=== PATIENT | male | born 1955 | race American Indian/Alaskan Native ===

== ENCOUNTER 2018-01-09 18:58 | Inpatient (IN) | payer OTHER ==
[2018-01-09 19:42] LABS: Hematocrit 32.6 % (35.5-45.6); Hemoglobin 11.2 gm/dl (11.8-15.2); Mean Corpuscular HGB Conc 34 % (32-34); Mean Corpuscular Hemoglobin 31 pg (28-32); Mean Corpuscular Volume 90 fl (84-94); Platelet Count 423 K/mm3 (140-440); Red Blood Count 3.61 M/mm3 (3.65-5.03); Red Cell Distribution Width 12.8 % (13.2-15.2)
[2018-01-09 19:55] LABS: INR 1.16 (0.87-1.13)
[2018-01-09 19:56] LABS: Partial Thromboplastin Time 29.6 Sec. (24.2-36.6)
[2018-01-09 20:07] LABS: Albumin 4.6 g/dL (3.9-5); Calcium 9.7 mg/dL (8.4-10.2)
[2018-01-09] MEDS ORDERED: D50W (25GM) Syringe IV ONE ×3 (20:15→22:32)
[2018-01-09] MEDS ORDERED: HumuLIN R IV ONE ×2 (20:15→22:32)
[2018-01-09] MEDS ORDERED: NACL 0.9% 1000 ML 1,000 ML IV ONE ×2 (20:16→22:01)
--- NOTE | 2018-01-09 20:22 | Cat Scan Report ---
FINAL REPORT EXAM: CT HEAD/BRAIN WO CON HISTORY: weakness TECHNIQUE: CT head without contrast PRIORS: None. FINDINGS: No acute intra-axial or extra-axial hemorrhage is identified. There is no evidence of midline shift or mass effect. The ventricles and sulci are within normal limits. Pedroza-white matter differentiation is intact. There is encephalomalacia left frontal lobe likely ischemic or posttraumatic in origin. No acute parenchymal abnormalities are seen. Bony calvarium is grossly intact. Visualized portions of the mastoids and paranasal sinuses are unremarkable. IMPRESSION: Chronic ischemic changes left frontal lobe No acute abnormality identified.
--- NOTE | 2018-01-09 20:41 | Emergency Department Report ---
HPI - General Chief Complaint: Weakness Time Seen by Provider: 01/09/18 19:16 - HPI HPI: 62-year-old male presents to the ED with generalized weakness, chills. Patient with history of prostate issues stated that he's been having some urinary retention ever since they took out is Perrin catheter. ED Past Medical Hx - Past Medical History Hx Hypertension: No Hx CVA: No - Social History Smoking Status: Never Smoker ED Review of Systems ROS: Stated complaint: GENERAL WEAKNESS Other details as noted in HPI Comment: All other systems reviewed and negative Cardiovascular: denies: chest pain Gastrointestinal: denies: abdominal pain, nausea, vomiting Genitourinary: urgency Physical Exam - Physical Exam Vital Signs: Vital Signs 01/09/18 01/09/18 01/09/18 19:03 19:07 19:15 Temperature 97.6 F Pulse Rate 74 78 76 Respiratory 12 12 11 L Rate Blood Pressure 129/80 123/78 O2 Sat by Pulse 82 L 98 Oximetry 01/09/18 01/09/18 19:31 19:46 Temperature Pulse Rate 79 Respiratory 12 12 Rate Blood Pressure 117/75 O2 Sat by Pulse 100 Oximetry Physical Exam: Gen. alert and oriented 3 in no distress but frail-appearing gentleman Extremity: Dry scaly extremities Head atraumatic normocephalic Eyes PERR LA EOMI Chest regular rate and rhythm normal S1-S2 lungs clear bilaterally Abdomen soft nondistended Back no point tenderness paravertebral tenderness Neuro no focal deficit. Psych normal mood. ED Course Vital Signs 01/09/18 01/09/18 01/09/18 19:03 19:07 19:15 Temperature 97.6 F Pulse Rate 74 78 76 Respiratory 12 12 11 L Rate Blood Pressure 129/80 123/78 O2 Sat by Pulse 82 L 98 Oximetry 01/09/18 01/09/18 19:31 19:46 Temperature Pulse Rate 79 Respiratory 12 12 Rate Blood Pressure 117/75 O2 Sat by Pulse 100 Oximetry ED Medical Decision Making - Lab Data Result diagrams: 01/09/18 19:35 01/10/18 01:19 Critical care attestation.: If time is entered above; I have spent that time in minutes in the direct care of this critically ill patient, excluding procedure time. ED Disposition Clinical Impression: Acute kidney injury, Hyperkalemia Disposition: OP ADMIT IP TO THIS HOSP Is pt being admited?: Yes Does the pt Need Aspirin: No Condition: Stable
[2018-01-09 20:45] LABS: Chol/HDL Ratio 3.5 %
[2018-01-09] MEDS ORDERED: CALCIUM CHLORIDE 1,000 MG in NACL 0.9% 100 ML IV ONE ×2 (21:00→23:00)
[2018-01-09] MEDS ORDERED: KIONEX PO ONE (21:24)
[2018-01-09] MEDS ORDERED: PROVENTIL IH ONE ×2 (21:24→22:46)
[2018-01-09 21:29] LABS: Anisocytosis 1+; Band Neutrophils # (Manual) 0.1 K/mm3; Basophils % (Manual) 0 % (0.0-1.8); Eosinophils % (Manual) 0 % (0.0-4.3); Platelet Estimate Consistent w Auto; Total Cells Counted 100
[2018-01-09] MEDS ORDERED: SODIUM CHLORIDE FLUSH SYRINGE 10 ML IV PRN (21:41)
[2018-01-09] MEDS ORDERED: ZOFRAN IV PRN (21:41)
[2018-01-09] MEDS ORDERED: TYLENOL PO PRN (21:41)
--- NOTE | 2018-01-09 21:41 | History and Physical Report ---
History of Present Illness Date of examination: 01/09/18 Chief complaint: Lower abdominal pain History of present illness: 62-year-old -[place] male was diagnosed with hypertension, BPH recently at [facility] and was given medications and discharged. Patient is very poor historian. Patient complains he has pain in the lower abdomen that started to 4 days ago. Couldn't characterize the pain but he said 8/10, constant pain. Patient said he had urinary retention for the last 3-4 days. He also complains hematuria and blood clot in the urine for the last 5 days. Went to [facility] diagnosed with hypertension and BPH was given amlodipine and BPH medications. Patient is feeling weak and tired, decreased food and fluid intake , decreased appetite. Denied fever, chills. REVIEW OF SYSTEMS: GENERAL: no weight change, + fatigue, no fever HEAD: no head ache EYES: no blurry vision, no acute visual loss EARS: no hearing loss, no discharge, no earache NOSE: no stuffiness, no sneezing, no discharge MOUTH, THROAT AND NECK: no bleeding gums, no sore throat, no swollen neck CARDIAC: no palpitations, no dyspnea on exertion, no orthopnea, no PND, no edema , no chest pain RESPIRATORY: no shortness of breath, no wheeze, no cough, no sputum, no hemoptysis, no asthma GI: As stated in the HPI. URINARY: Hematuria, and failure to pass urine MUSCULOSKELETAL: no muscle weakness, no pain, no joint stiffness NEUROLOGIC: no loss of sensation/numbness, no tingling, no tremors, no weakness/ paralysis HEMATOLOGIC: no anemia, no easy bruising SKIN: no rashes ENDOCRINE: no heat/cold intolerance, no polyuria, no polydipsia, no thyroid problems PSYCHIATRIC: no anxiety, no depression, no suicidal ideations Past History Past Medical History: hypertension, other (BPH) Past Surgical History: No surgical history Social history: full code. denies: smoking, alcohol abuse, prescription drug abuse, IV drug use Family history: no significant family history Medications and Allergies Allergies Allergy/AdvReac Type Severity Reaction Status Date / Time No Known Allergies Allergy Verified 01/09/18 20:41 Exam - Physical Exam Narrative exam: Not in cardiopulmonary distress. Ashen berkowitz face. The patient appeared emaciated. Vital signs as documented. Head exam is unremarkable. No scleral icterus . Neck is without jugular venous distension, thyromegaly, or carotid bruits. Lungs are clear to auscultation. Cardiac exam reveals regular rate and Rhythm. Abdominal exam reveals normal bowel sounds. Urinary cath in place. Extremities are nonedematous and both femoral and pedal pulses are normal. OPERATIONAL RISK MANAGER: Alert and oriented 3. No focal weakness. - Constitutional Vitals: Temp Pulse Resp BP Pulse Ox 97.6 F 85 22 117/75 100 01/09/18 19:07 01/09/18 20:45 01/09/18 20:45 01/09/18 20:45 01/09/18 20:45 Results - Labs CBC & Chem 7: 01/09/18 19:35 01/09/18 21:31 Labs: Laboratory Last Values WBC 14.6 K/mm3 (4.5-11.0) H 01/09/18 19:35 RBC 3.61 M/mm3 (3.65-5.03) L 01/09/18 19:35 Hgb 11.2 gm/dl (11.8-15.2) L 01/09/18 19:35 Hct 32.6 % (35.5-45.6) L 01/09/18 19:35 MCV 90 fl (84-94) 01/09/18 19:35 MCH 31 pg (28-32) 01/09/18 19:35 MCHC 34 % (32-34) 01/09/18 19:35 RDW 12.8 % (13.2-15.2) L 01/09/18 19:35 Plt Count 423 K/mm3 (140-440) 01/09/18 19:35 Add Manual Diff Complete 01/09/18 19:35 Total Counted 100 01/09/18 19:35 Seg Neuts % (Manual) 91.0 % (40.0-70.0) H 01/09/18 19:35 Band Neutrophils % 1.0 % 01/09/18 19:35 Lymphocytes % (Manual) 4.0 % (13.4-35.0) L 01/09/18 19:35 Reactive Lymphs % (Man) 0 % 01/09/18 19:35 Monocytes % (Manual) 4.0 % (0.0-7.3) 01/09/18 19:35 Eosinophils % (Manual) 0 % (0.0-4.3) 01/09/18 19:35 Basophils % (Manual) 0 % (0.0-1.8) 01/09/18 19:35 Metamyelocytes % 0 % 01/09/18 19:35 Myelocytes % 0 % 01/09/18 19:35 Promyelocytes % 0 % 01/09/18 19:35 Blast Cells % 0 % 01/09/18 19:35 Nucleated RBC % Not Reportable 01/09/18 19:35 Seg Neutrophils # Man 13.3 K/mm3 (1.8-7.7) H 01/09/18 19:35 Band Neutrophils # 0.1 K/mm3 01/09/18 19:35 Lymphocytes # (Manual) 0.6 K/mm3 (1.2-5.4) L 01/09/18 19:35 Abs React Lymphs (Man) 0.0 K/mm3 01/09/18 19:35 Monocytes # (Manual) 0.6 K/mm3 (0.0-0.8) 01/09/18 19:35 Eosinophils # (Manual) 0.0 K/mm3 (0.0-0.4) 01/09/18 19:35 Basophils # (Manual) 0.0 K/mm3 (0.0-0.1) 01/09/18 19:35 Metamyelocytes # 0.0 K/mm3 01/09/18 19:35 Myelocytes # 0.0 K/mm3 01/09/18 19:35 Promyelocytes # 0.0 K/mm3 01/09/18 19:35 Blast Cells # 0.0 K/mm3 01/09/18 19:35 WBC Morphology Not Reportable 01/09/18 19:35 Hypersegmented Neuts Not Reportable 01/09/18 19:35 Hyposegmented Neuts Not Reportable 01/09/18 19:35 Hypogranular Neuts Not Reportable 01/09/18 19:35 Smudge Cells Not Reportable 01/09/18 19:35 Toxic Granulation Not Reportable 01/09/18 19:35 Toxic Vacuolation Not Reportable 01/09/18 19:35 Dohle Bodies Not Reportable 01/09/18 19:35 Pelger-Huet Anomaly Not Reportable 01/09/18 19:35 Conchita Rods Not Reportable 01/09/18 19:35 Platelet Estimate Consistent w auto 01/09/18 19:35 Clumped Platelets Not Reportable 01/09/18 19:35 Plt Clumps, EDTA Not Reportable 01/09/18 19:35 Large Platelets Not Reportable 01/09/18 19:35 Giant Platelets Not Reportable 01/09/18 19:35 Platelet Satelliting Not Reportable 01/09/18 19:35 Plt Morphology Comment Not Reportable 01/09/18 19:35 RBC Morphology Not Reportable 01/09/18 19:35 Dimorphic RBCs Not Reportable 01/09/18 19:35 Polychromasia Not Reportable 01/09/18 19:35 Hypochromasia Not Reportable 01/09/18 19:35 Poikilocytosis Not Reportable 01/09/18 19:35 Anisocytosis 1+ 01/09/18 19:35 Microcytosis Not Reportable 01/09/18 19:35 Macrocytosis Not Reportable 01/09/18 19:35 Spherocytes Not Reportable 01/09/18 19:35 Pappenheimer Bodies Not Reportable 01/09/18 19:35 Sickle Cells Not Reportable 01/09/18 19:35 Target Cells Not Reportable 01/09/18 19:35 Tear Drop Cells Not Reportable 01/09/18 19:35 Ovalocytes Not Reportable 01/09/18 19:35 Helmet Cells Not Reportable 01/09/18 19:35 [place] Bodies Not Reportable 01/09/18 19:35 [place] Rings Not Reportable 01/09/18 19:35 [place] Cells Not Reportable 01/09/18 19:35 Bite Cells Not Reportable 01/09/18 19:35 Crenated Cell Not Reportable 01/09/18 19:35 Elliptocytes Not Reportable 01/09/18 19:35 Acanthocytes (Spur) Not Reportable 01/09/18 19:35 Rouleaux Not Reportable 01/09/18 19:35 Hemoglobin C Crystals Not Reportable 01/09/18 19:35 Schistocytes Not Reportable 01/09/18 19:35 Malaria parasites Not Reportable 01/09/18 19:35 Alvaro Bodies Not Reportable 01/09/18 19:35 Hem Pathologist Commnt No 01/09/18 19:35 PT 15.4 Sec. (12.2-14.9) H 01/09/18 19:35 INR 1.16 (0.87-1.13) H 01/09/18 19:35 APTT 29.6 Sec. (24.2-36.6) 01/09/18 19:35 Sodium 121 mmol/L (137-145) L 01/09/18 19:35 Potassium 7.5 mmol/L (3.6-5.0) H* 01/09/18 19:35 Chloride 73.9 mmol/L (98-107) L 01/09/18 19:35 Carbon Dioxide 11 mmol/L (22-30) L 01/09/18 19:35 Anion Gap 44 mmol/L 01/09/18 19:35 BUN 276 mg/dL (9-20) H 01/09/18 19:35 Creatinine 12.7 mg/dL (0.8-1.5) H 01/09/18 19:35 Estimated GFR 4 ml/min 01/09/18 19:35 BUN/Creatinine Ratio 22 % 01/09/18 19:35 Glucose 129 mg/dL (75-100) H 01/09/18 19:35 Calcium 9.7 mg/dL (8.4-10.2) 01/09/18 19:35 Total Bilirubin 0.60 mg/dL (0.1-1.2) 01/09/18 19:35 AST 27 units/L (5-40) 01/09/18 19:35 ALT 26 units/L (7-56) 01/09/18 19:35 Alkaline Phosphatase 96 units/L (35-129) 01/09/18 19:35 Troponin T 0.032 ng/mL (0.00-0.029) H 01/09/18 19:35 NT-Pro-B Natriuret Pep 483.2 pg/mL (0-900) 01/09/18 19:35 Total Protein 8.2 g/dL (6.3-8.2) 01/09/18 19:35 Albumin 4.6 g/dL (3.9-5) 01/09/18 19:35 Albumin/Globulin Ratio 1.3 % 01/09/18 19:35 Triglycerides 130 mg/dL (2-149) 03/08/18 19:35 Cholesterol 179 mg/dL (50-199) 01/09/18 19:35 LDL Cholesterol Direct 102 mg/dL (50-130) 01/09/18 19:35 HDL Cholesterol 51 mg/dL (40-59) 01/09/18 19:35 Cholesterol/HDL Ratio 3.50 % 01/09/18 19:35 - Imaging and Cardiology CT Scan - head: report reviewed (chronic ischemic changes) Imaging and Cardiology: Pelvic ultrasound reading pending Assessment and Plan Assessment and plan: Acute renal failure Acute urinary retention secondary to BPH Hyperkalemia Severe dehydration Hypernatremia Deconditioning UTI - Patient was given hyperkalemia cocktail, patient has peaked T wave and calcium gluconate was given, repeat potassium is going up to 7.6 from 7.[address] Alexander and he said the sample is hemolyzed, and recommended to give him Kayexalate and will evaluate him in the morning. Patient needed frequent BMP and follow-up of repeat EKG. Patient may need dialysis - Patient was catheterized and about a liter of urine was collected, no hematuria seen in the urine - Renal ultrasound was done - Patient may need urology consult in the morning - Patient has UTI, urine culture was collected and given ceftriaxone - Patient was given 2 L of normal saline bolus and now on continuous normal saline DVT prophylaxis - Heparin Disposition - Admit to telemetry floor Advance Directives: Yes VTE prophylaxis?: Chemical Plan of care discussed with patient/family: Yes
[2018-01-09] MEDS ORDERED: NACL 0.9% 1000 ML 1,000 ML IV SCH (22:00)
[2018-01-09] MEDS ORDERED: PEPCID PO SCH (22:00)
[2018-01-09 22:06] LABS: Bacteria,Urine 1+ /HPF (Negative); Bilirubin,Urine NEG (Negative); Blood,Urine LG (Negative); Color,Urine Yellow (Yellow); Urobilinogen,Urine < 2.0 mg/dL (<2.0)
[2018-01-09 22:09] LABS: WBC,Urine > 182.0 /HPF (0.0-6.0)
[2018-01-09] MEDS ORDERED: CALCIUM CHLORIDE IV ONE (22:32)
[2018-01-09] MEDS: SODIUM CHLORIDE FLUSH SYRINGE 10 ML IV SCH (22:48)
[2018-01-09] MEDS ORDERED: NACL 0.9% 1000 ML 1,000 ML ONE (22:50)
[2018-01-09] MEDS ORDERED: HEPARIN ONE (23:32)
[2018-01-09] MEDS ORDERED: PEPCID IV ONE (23:32)
[2018-01-09] MEDS ORDERED: PEPCID ONE (23:39)
[2018-01-09] MEDS: HEPARIN SUB-Q SCH (23:53)
--- NOTE | 2018-01-09 23:53 | Ultrasound Report ---
FINAL REPORT EXAM: US RENAL BILAT HISTORY: acute on chronic renal failure TECHNIQUE: Ultrasound kidneys PRIORS: None. FINDINGS: Kidneys demonstrate increased renal echogenicity bilaterally Right kidney is 10.4 x 4.7 x 7.9 centimeters Left kidney is 12.3 x 5.6 x 6.6 centimeters There is moderate to severe bilateral hydronephrosis the right proximal ureters are dilated There is a Perrin present. The bulb is at the inferior aspect of the bladder and may be and inflated within the prostatic urethra. There is some fluid along with debris present within the urinary bladder. Bladder dunne are markedly thickened IMPRESSION: Perrin catheter which may be inflated within prostate. Consider advancement Some debris within the urinary bladder could reflect blood products, infection or other etiologies marked bladder wall thickening Bilateral hydronephrosis Increased echogenicity within renal parenchyma bilaterally likely reflecting chronic medical renal disease
[2018-01-10] MEDS ORDERED: cefTRIAXone 2 GM in NACL 0.9% 20 ML IV ONE
[2018-01-10] MEDS ORDERED: MORPHINE IV PRN ×2 (00:27→00:46)
[2018-01-10] MEDS: PEPCID PO SCH ×3 (01:33→22:29)
[2018-01-10 01:46] LABS: Calcium 9.3 mg/dL (8.4-10.2)
[2018-01-10] MEDS ORDERED: PROAIR IH PRN (04:52)
[2018-01-10] MEDS ORDERED: PROVENTIL IH PRN (04:57)
[2018-01-10] MEDS: HEPARIN SUB-Q SCH ×3 (05:59→22:29)
[2018-01-10 06:01] LABS: Hematocrit 31.5 % (35.5-45.6); Hemoglobin 10.7 gm/dl (11.8-15.2); Mean Corpuscular HGB Conc 34 % (32-34); Mean Corpuscular Hemoglobin 31 pg (28-32); Mean Corpuscular Volume 92 fl (84-94); Platelet Count 385 K/mm3 (140-440); Red Blood Count 3.44 M/mm3 (3.65-5.03); Red Cell Distribution Width 12.8 % (13.2-15.2)
[2018-01-10] MEDS: SODIUM BICARBONATE 100 MEQ in STERILE WATER 1,000 ML IV SCH ×2 (06:11→22:30)
[2018-01-10 07:44] LABS: Basophils % (Manual) 0 % (0.0-1.8); Eosinophils % (Manual) 0 % (0.0-4.3); RBC Morphology Normal; Total Cells Counted 100
--- NOTE | 2018-01-10 08:27 | Consultation ---
History of Present Illness - Reason for Consult Consult date: 01/10/18 acute renal failure, hyponatremia, hyperkalemia - History of Present Illness The patient is a 62-year-old AAM with history significant for Hypertension and BPH presented to the ER with abdominal pain and feeling unwell. Patient is poor historian. He has not been feeling well for the past 3 weeks with decreased appetite, poor PO intake, feeling weak and tired. He denies any pain at this time. Patient reports urinary retention for the past 3-4 days and associated with hematuria and blood clot in the urine. Initial labs were significant for potassium of 7.5 and creatinine 12.7 and BUN 276. After the ellison was placed he drained atleast 750 ml immediately per ER physician. Past History Past Medical History: hypertension, other (BPH) Past Surgical History: No surgical history Social history: full code. denies: smoking, alcohol abuse, prescription drug abuse, IV drug use Family history: no significant family history Medications and Allergies Allergies Allergy/AdvReac Type Severity Reaction Status Date / Time No Known Allergies Allergy Verified 01/09/18 20:41 Active Meds: Active Medications Acetaminophen (Tylenol) 650 mg PO Q4H PRN PRN Reason: Pain MILD(1-3)/Fever >100.5/GODINEZ Albuterol (Proventil) 2.5 mg IH Q4HRT PRN PRN Reason: Shortness Of Breath Famotidine (Pepcid) 10 mg PO BID [facility] Last Admin: 01/10/18 01:33 Dose: 10 mg Heparin Sodium (Porcine) (Heparin) 5,000 unit SUB-Q Q8HR [facility] Last Admin: 01/10/18 05:59 Dose: 5,000 unit Sodium Chloride (Nacl 0.9% 1000 Ml) 1,000 mls @ 150 mls/hr IV DIRECT [facility] Last Admin: 01/10/18 04:42 Dose: 150 mls/hr Ceftriaxone Sodium 1 gm/ (Sodium Chloride) 20 mls @ 2 mls/min IV Q24HR@2200 [facility] Sodium Bicarbonate 100 meq/ (Sterile Water) 1,100 mls @ 100 mls/hr IV DIRECT [facility] Last Admin: 01/10/18 06:11 Dose: 100 mls/hr Morphine Sulfate (Morphine) 2 mg IV Q4H PRN PRN Reason: Pain, Moderate (4-6) Ondansetron HCl (Zofran) 4 mg IV Q8H PRN PRN Reason: Nausea And Vomiting Sodium Chloride (Sodium Chloride Flush Syringe 10 Ml) 10 ml IV BID [facility] Last Admin: 01/09/18 22:48 Dose: 10 ml Sodium Chloride (Sodium Chloride Flush Syringe 10 Ml) 10 ml IV PRN PRN PRN Reason: LINE FLUSH Review of Systems Constitutional: weight loss, anorexia, fatigue, weakness, malaise, poor appetite , no weight gain, no fever, no chills, no chronic pain Ears, nose, mouth and throat: no epistaxis Cardiovascular: high blood pressure, no chest pain, no orthopnea, no palpitations, no edema, no syncope, no lightheadedness, no shortness of breath, no leg edema Respiratory: no cough, no hemoptysis, no shortness of breath, no dyspnea on exertion Gastrointestinal: abdominal pain, no nausea, no vomiting, no diarrhea, no hematemesis, no melena, no jaundice Genitourinary Male: no dysuria, no hematuria Rectal: no bleeding Musculoskeletal: no redness of joints Integumentary: no rash, no redness, no wounds, no jaundice Neurological: weakness, no paralysis, no aphasia, no change in speech Exam - Vital Signs Vital signs: Vital Signs Pulse Resp Pulse Ox 74 12 82 L 01/09/18 19:03 01/09/18 19:03 01/09/18 19:03 - General Appearance General appearance: well-developed, appears stated age, other (no distress) EENT: ATNC, PERRL, mucous membranes dry, hearing intact, vision intact Neck: Present: neck supple, trachea midline Respiratory: Clear to Ascultation Heart: regular, S1S2, no murmurs Gastrointestinal: Present: normoactive bowel sounds. Absent: tenderness, distended Integumentary: no rash, warm and dry Neurologic: no focal deficit, no asterixis, disoriented Musculoskeletal: Present: other (no edema) Psychiatric: mood/affect appropriate, cooperative Results - Lab Results 01/10/18 04:59 01/10/18 04:59 Most recent lab results Calcium 9.0 mg/dL (8.4-10.2) 01/10/18 04:59 - Image Kidney/bladder ultrasound: report reviewed Assessment and Plan 1. Acute kidney injury: SANDOVAL in the setting of obstructive Uropathy and volume depletion. S/p ellison catheter in the ER. Continue IV fluids. Renal parameters are improving. Renal prognosis is guarded. 2. Hyperkalemia: Improved with meds. 3. Metabolic acidosis: Continue bicarbonate drip. May need hemodialysis if not improving. Monitor. 4. Hyponatremia: Likely secondary to volume depletion. Monitor Sodium levels. IV D5W was started. 5. Volume depletion: Continue IV fluids. 6. BPH with bladder outlet obstruction: S/p Ellison catheter.
[2018-01-10] MEDS: SODIUM CHLORIDE FLUSH SYRINGE 10 ML IV SCH ×2 (09:00→22:32)
[2018-01-10] MEDS ORDERED: D5W 1,000 ML IV SCH (09:00)
[2018-01-10] MEDS ORDERED: ROCEPHIN/NS 1 GM/50 ML 1 GM/50 ML BAG IV SCH (10:00)
[2018-01-10] MEDS ORDERED: ATIVAN IV ONE (12:00)
--- NOTE | 2018-01-10 12:41 | Consultation ---
History of Present Illness - Reason for Consult Consult date: 01/10/18 - History of Present Illness 62-year-old male presents to the ED with generalized weakness, chills. Patient with history of prostate issues stated that he's been having some urinary retention ever since they took out is Ellison catheter. creatinine 12 now 8 pelvic us(01-10-18)---decompressed bladder, ellison balloon in bladder foely draining pink tinged urine A/P bph continue ellison home with ellison when stable start flomax 1qd office appt 1-2 weeks after discharge Past History Past Medical History: hypertension, other (BPH) Past Surgical History: No surgical history Social history: full code. denies: smoking, alcohol abuse, prescription drug abuse, IV drug use Family history: no significant family history Medications and Allergies Allergies Allergy/AdvReac Type Severity Reaction Status Date / Time No Known Allergies Allergy Verified 01/09/18 20:41 Active Meds: Active Medications Acetaminophen (Tylenol) 650 mg PO Q4H PRN PRN Reason: Pain MILD(1-3)/Fever >100.5/GODINEZ Albuterol (Proventil) 2.5 mg IH Q4HRT PRN PRN Reason: Shortness Of Breath Famotidine (Pepcid) 10 mg PO BID [facility] Last Admin: 01/10/18 10:08 Dose: 10 mg Heparin Sodium (Porcine) (Heparin) 5,000 unit SUB-Q Q8HR [facility] Last Admin: 01/10/18 05:59 Dose: 5,000 unit Sodium Chloride (Nacl 0.9% 1000 Ml) 1,000 mls @ 150 mls/hr IV DIRECT [facility] Last Admin: 01/10/18 04:42 Dose: 150 mls/hr Ceftriaxone Sodium 1 gm/ (Sodium Chloride) 20 mls @ 2 mls/min IV Q24HR@2200 [facility] Sodium Bicarbonate 100 meq/ (Sterile Water) 1,100 mls @ 100 mls/hr IV DIRECT [facility] Last Admin: 01/10/18 06:11 Dose: 100 mls/hr Dextrose (D5w) 1,000 mls @ 75 mls/hr IV DIRECT [facility] Stop: 01/10/18 22:19 Last Admin: 01/10/18 09:00 Dose: 75 mls/hr Morphine Sulfate (Morphine) 2 mg IV Q4H PRN PRN Reason: Pain, Moderate (4-6) Ondansetron HCl (Zofran) 4 mg IV Q8H PRN PRN Reason: Nausea And Vomiting Sodium Chloride (Sodium Chloride Flush Syringe 10 Ml) 10 ml IV BID [facility] Last Admin: 01/10/18 09:00 Dose: 10 ml Sodium Chloride (Sodium Chloride Flush Syringe 10 Ml) 10 ml IV PRN PRN PRN Reason: LINE FLUSH Exam - Constitutional Vitals: Temp Pulse Resp BP Pulse Ox 98.6 F 93 H 19 120/87 100 01/10/18 12:08 01/10/18 12:08 01/10/18 12:08 01/10/18 12:08 01/10/18 12:08 Results - Labs CBC & Chem 7: 01/10/18 04:59 01/10/18 14:03 Labs: Abnormal lab results 01/09/18 01/09/18 01/09/18 Range/Units 19:35 19:35 19:35 WBC 14.6 H (4.5-11.0) K/mm3 RBC 3.61 L (3.65-5.03) M/mm3 Hgb 11.2 L (11.8-15.2) gm/dl Hct 32.6 L (35.5-45.6) % RDW 12.8 L (13.2-15.2) % Seg Neuts % (Manual) 91.0 H (40.0-70.0) % Lymphocytes % (Manual) 4.0 L (13.4-35.0) % Monocytes % (Manual) (0.0-7.3) % Seg Neutrophils # Man 13.3 H (1.8-7.7) K/mm3 Lymphocytes # (Manual) 0.6 L (1.2-5.4) K/mm3 Monocytes # (Manual) (0.0-0.8) K/mm3 PT (12.2-14.9) Sec. INR (0.87-1.13) Sodium 121 L (137-145) mmol/L Potassium 7.5 H* (3.6-5.0) mmol/L Chloride 73.9 L (98-107) mmol/L Carbon Dioxide 11 L (22-30) mmol/L BUN 276 H (9-20) mg/dL Creatinine 12.7 H (0.8-1.5) mg/dL Glucose 129 H (75-100) mg/dL Total Creatine Kinase (55-170) units/L Troponin T 0.032 H (0.00-0.029) ng/mL Urine WBC (Auto) (0.0-6.0) /HPF 01/09/18 01/09/18 01/09/18 Range/Units 19:35 21:31 21:48 WBC (4.5-11.0) K/mm3 RBC (3.65-5.03) M/mm3 Hgb (11.8-15.2) gm/dl Hct (35.5-45.6) % RDW (13.2-15.2) % Seg Neuts % (Manual) (40.0-70.0) % Lymphocytes % (Manual) (13.4-35.0) % Monocytes % (Manual) (0.0-7.3) % Seg Neutrophils # Man (1.8-7.7) K/mm3 Lymphocytes # (Manual) (1.2-5.4) K/mm3 Monocytes # (Manual) (0.0-0.8) K/mm3 PT 15.4 H (12.2-14.9) Sec. INR 1.16 H (0.87-1.13) Sodium (137-145) mmol/L Potassium 7.6 H* (3.6-5.0) mmol/L Chloride (98-107) mmol/L Carbon Dioxide (22-30) mmol/L BUN (9-20) mg/dL Creatinine (0.8-1.5) mg/dL Glucose (75-100) mg/dL Total Creatine Kinase (55-170) units/L Troponin T (0.00-0.029) ng/mL Urine WBC (Auto) > 182.0 H (0.0-6.0) /HPF 01/10/18 01/10/18 01/10/18 Range/Units 01:19 04:59 04:59 WBC 15.2 H (4.5-11.0) K/mm3 RBC 3.44 L (3.65-5.03) M/mm3 Hgb 10.7 L (11.8-15.2) gm/dl Hct 31.5 L (35.5-45.6) % RDW 12.8 L (13.2-15.2) % Seg Neuts % (Manual) 88.0 H (40.0-70.0) % Lymphocytes % (Manual) 4.0 L (13.4-35.0) % Monocytes % (Manual) 8.0 H (0.0-7.3) % Seg Neutrophils # Man 13.4 H (1.8-7.7) K/mm3 Lymphocytes # (Manual) 0.6 L (1.2-5.4) K/mm3 Monocytes # (Manual) 1.2 H (0.0-0.8) K/mm3 PT (12.2-14.9) Sec. INR (0.87-1.13) Sodium 125 L 129 L (137-145) mmol/L Potassium 6.8 H* (3.6-5.0) mmol/L Chloride 84.3 L 83.1 L (98-107) mmol/L Carbon Dioxide 9 L* 8 L* (22-30) mmol/L BUN 257 H 254 H (9-20) mg/dL Creatinine 11.8 H 10.6 H (0.8-1.5) mg/dL Glucose 107 H 117 H (75-100) mg/dL Total Creatine Kinase 950 H (55-170) units/L Troponin T (0.00-0.029) ng/mL Urine WBC (Auto) (0.0-6.0) /HPF
[2018-01-10 14:34] LABS: Calcium 8.7 mg/dL (8.4-10.2)
[2018-01-10] MEDS ORDERED: K-DUR PO ONE (16:00)
--- NOTE | 2018-01-10 16:42 | Ultrasound Report ---
FINAL REPORT PROCEDURE: US PELVIC LIMITED TECHNIQUE: Real-time transabdominal sonography in multiple planes of pelvis for a focused or limited evaluation was performed with image documentation. CPT 35114 HISTORY: confirm ellison placement, abdominal pain COMPARISON: No prior studies are available for comparison. FINDINGS: Ellison catheter is visualized in the urinary bladder. A large amount of debris is visualized collected dependently in the urinary bladder. The dunne of the urinary bladder are markedly thickened. Consider cystitis, bladder outlet obstruction or infiltrating mass.. IMPRESSION: Ellison catheter visualized in the urinary bladder. Large amount of debris visualized dependently in the bladder. Thickened urinary bladder wall as described.
--- NOTE | 2018-01-10 17:35 | Progress Note ---
Assessment and Plan Assessment and plan: 62-year-old -[place] male was diagnosed with hypertension, BPH recently at [facility] and was given medications and discharged. Patient is very poor historian. Patient complains he has pain in the lower abdomen that started to 4 days ago. Couldn't characterize the pain but he said 8/10, constant pain. Patient said he had urinary retention for the last 3-4 days. He also complains hematuria and blood clot in the urine for the last 5 days. Acute renal failure Likely secondary to volume depletion and bladder outlet obstruction S/p ellison catheter in the ER. Continue IV fluids, nephrology following Acute urinary retention secondary to BPH Ellison placed incorrectly, urology consulted Hyperkalemia Improved with hyperkalemia cocktail, continue to monitor Severe dehydration Continue IV fluids Hyponatremia Likely secondary to volume depletion. Monitor Sodium levels. IV D5W was initiated Metabolic acidosis Continue bicarbonate drip. May need hemodialysis if not improving per Dr Alexander Nephrology following Deconditioning UTI Follow urine culture, continue ceftriaxone BPH with bladder outlet obstruction S/p Ellison catheter insertion, U/S shows may be in prostate Urology consulted DVT prophylaxis Heparin History Interval history: Patient seen and examined, no new complaints at this time. He denies chest pain , shortness of breath, nausea vomiting. Labs and nursing notes reviewed. Hospitalist Physical - Constitutional Vitals: Temp Pulse Resp BP Pulse Ox 98.6 F 102 H 19 119/78 94 01/10/18 15:38 01/10/18 15:38 01/10/18 15:38 01/10/18 15:38 01/10/18 15:38 General appearance: Present: no acute distress, cachectic - EENT Eyes: Present: PERRL, EOM intact ENT: hearing intact, clear oral mucosa - Neck Neck: Present: supple, normal ROM - Respiratory Respiratory effort: normal Respiratory: bilateral: CTA - Cardiovascular Rhythm: regular Heart Sounds: Present: S1 & S2 - Extremities Extremities: no ischemia, No edema - Abdominal General gastrointestinal: soft, non-tender, non-distended, normal bowel sounds - Integumentary Integumentary: Present: clear, warm, dry - Psychiatric Psychiatric: appropriate mood/affect, intact judgment & insight, cooperative - Neurologic Neurologic: CNII-XII intact, moves all extremities - Allied Health Allied health notes reviewed: nursing Results - Labs CBC & Chem 7: 01/10/18 04:59 01/10/18 14:03 Labs: Laboratory Last Values WBC 15.2 K/mm3 (4.5-11.0) H 01/10/18 04:59 RBC 3.44 M/mm3 (3.65-5.03) L 01/10/18 04:59 Hgb 10.7 gm/dl (11.8-15.2) L 01/10/18 04:59 Hct 31.5 % (35.5-45.6) L 01/10/18 04:59 MCV 92 fl (84-94) 01/10/18 04:59 MCH 31 pg (28-32) 01/10/18 04:59 MCHC 34 % (32-34) 01/10/18 04:59 RDW 12.8 % (13.2-15.2) L 01/10/18 04:59 Plt Count 385 K/mm3 (140-440) 01/10/18 04:59 Add Manual Diff Complete 01/10/18 04:59 Total Counted 100 01/10/18 04:59 Seg Neuts % (Manual) 88.0 % (40.0-70.0) H 01/10/18 04:59 Band Neutrophils % 0 % 01/10/18 04:59 Lymphocytes % (Manual) 4.0 % (13.4-35.0) L 01/10/18 04:59 Reactive Lymphs % (Man) 0 % 01/10/18 04:59 Monocytes % (Manual) 8.0 % (0.0-7.3) H 01/10/18 04:59 Eosinophils % (Manual) 0 % (0.0-4.3) 01/10/18 04:59 Basophils % (Manual) 0 % (0.0-1.8) 01/10/18 04:59 Metamyelocytes % 0 % 01/10/18 04:59 Myelocytes % 0 % 01/10/18 04:59 Promyelocytes % 0 % 01/10/18 04:59 Blast Cells % 0 % 01/10/18 04:59 Nucleated RBC % Not Reportable 01/10/18 04:59 Seg Neutrophils # Man 13.4 K/mm3 (1.8-7.7) H 01/10/18 04:59 Band Neutrophils # 0.0 K/mm3 01/10/18 04:59 Lymphocytes # (Manual) 0.6 K/mm3 (1.2-5.4) L 01/10/18 04:59 Abs React Lymphs (Man) 0.0 K/mm3 01/10/18 04:59 Monocytes # (Manual) 1.2 K/mm3 (0.0-0.8) H 01/10/18 04:59 Eosinophils # (Manual) 0.0 K/mm3 (0.0-0.4) 01/10/18 04:59 Basophils # (Manual) 0.0 K/mm3 (0.0-0.1) 01/10/18 04:59 Metamyelocytes # 0.0 K/mm3 01/10/18 04:59 Myelocytes # 0.0 K/mm3 01/10/18 04:59 Promyelocytes # 0.0 K/mm3 01/10/18 04:59 Blast Cells # 0.0 K/mm3 01/10/18 04:59 WBC Morphology Not Reportable 01/10/18 04:59 Hypersegmented Neuts Not Reportable 01/10/18 04:59 Hyposegmented Neuts Not Reportable 01/10/18 04:59 Hypogranular Neuts Not Reportable 01/10/18 04:59 Smudge Cells Not Reportable 01/10/18 04:59 Toxic Granulation Not Reportable 01/10/18 04:59 Toxic Vacuolation Not Reportable 01/10/18 04:59 Dohle Bodies Not Reportable 01/10/18 04:59 Pelger-Huet Anomaly Not Reportable 01/10/18 04:59 Conchita Rods Not Reportable 01/10/18 04:59 Platelet Estimate Not Reportable 01/10/18 04:59 Clumped Platelets Not Reportable 01/10/18 04:59 Plt Clumps, EDTA Not Reportable 01/10/18 04:59 Large Platelets Not Reportable 01/10/18 04:59 Giant Platelets Not Reportable 01/10/18 04:59 Platelet Satelliting Not Reportable 01/10/18 04:59 Plt Morphology Comment Not Reportable 01/10/18 04:59 RBC Morphology Normal 01/10/18 04:59 Dimorphic RBCs Not Reportable 01/10/18 04:59 Polychromasia Not Reportable 01/10/18 04:59 Hypochromasia Not Reportable 01/10/18 04:59 Poikilocytosis Not Reportable 01/10/18 04:59 Anisocytosis Not Reportable 01/10/18 04:59 Microcytosis Not Reportable 01/10/18 04:59 Macrocytosis Not Reportable 01/10/18 04:59 Spherocytes Not Reportable 01/10/18 04:59 Pappenheimer Bodies Not Reportable 01/10/18 04:59 Sickle Cells Not Reportable 01/10/18 04:59 Target Cells Not Reportable 01/10/18 04:59 Tear Drop Cells Not Reportable 01/10/18 04:59 Ovalocytes Not Reportable 01/10/18 04:59 Helmet Cells Not Reportable 01/10/18 04:59 [place] Bodies Not Reportable 01/10/18 04:59 [place] Rings Not Reportable 01/10/18 04:59 Lance Cells Not Reportable 01/10/18 04:59 Bite Cells Not Reportable 01/10/18 04:59 Crenated Cell Not Reportable 01/10/18 04:59 Elliptocytes Not Reportable 01/10/18 04:59 Acanthocytes (Spur) Not Reportable 01/10/18 04:59 Rouleaux Not Reportable 01/10/18 04:59 Hemoglobin C Crystals Not Reportable 01/10/18 04:59 Schistocytes Not Reportable 01/10/18 04:59 Malaria parasites Not Reportable 01/10/18 04:59 Alvaro Bodies Not Reportable 01/10/18 04:59 Hem Pathologist Commnt No 01/10/18 04:59 PT 15.4 Sec. (12.2-14.9) H 01/09/18 19:35 INR 1.16 (0.87-1.13) H 01/09/18 19:35 APTT 29.6 Sec. (24.2-36.6) 01/09/18 19:35 Sodium 132 mmol/L (137-145) L 01/10/18 14:03 Potassium 3.1 mmol/L (3.6-5.0) L D 01/10/18 14:03 Chloride 83.4 mmol/L (98-107) L 01/10/18 14:03 Carbon Dioxide 16 mmol/L (22-30) L D 01/10/18 14:03 Anion Gap 36 mmol/L 01/10/18 14:03 BUN 218 mg/dL (9-20) H 01/10/18 14:03 Creatinine 8.0 mg/dL (0.8-1.5) H 01/10/18 14:03 Estimated GFR 8 ml/min 01/10/18 14:03 BUN/Creatinine Ratio 27 % 01/10/18 14:03 Glucose 155 mg/dL (75-100) H 01/10/18 14:03 Calcium 8.7 mg/dL (8.4-10.2) 01/10/18 14:03 Total Bilirubin 0.60 mg/dL (0.1-1.2) 01/09/18 19:35 AST 27 units/L (5-40) 01/09/18 19:35 ALT 26 units/L (7-56) 01/09/18 19:35 Alkaline Phosphatase 96 units/L (35-129) 01/09/18 19:35 Total Creatine Kinase 950 units/L (55-170) H 01/10/18 04:59 Troponin T 0.032 ng/mL (0.00-0.029) H 01/09/18 19:35 NT-Pro-B Natriuret Pep 483.2 pg/mL (0-900) 01/09/18 19:35 Total Protein 8.2 g/dL (6.3-8.2) 01/09/18 19:35 Albumin 4.6 g/dL (3.9-5) 01/09/18 19:35 Albumin/Globulin Ratio 1.3 % 01/09/18 19:35 Triglycerides 130 mg/dL (2-149) 01/09/18 19:35 Cholesterol 179 mg/dL (50-199) 01/09/18 19:35 LDL Cholesterol Direct 102 mg/dL (50-130) 01/09/18 19:35 HDL Cholesterol 51 mg/dL (40-59) 01/09/18 19:35 Cholesterol/HDL Ratio 3.50 % 01/09/18 19:35 Urine Color Yellow (Yellow) 01/09/18 21:48 Urine Turbidity Cloudy (Clear) 01/09/18 21:48 Urine pH 5.0 (5.0-7.0) 01/09/18 21:48 Ur Specific [place] 1.012 (1.003-1.030) 01/09/18 21:48 Urine Protein 100 mg/dl mg/dL (Negative) 01/09/18 21:48 Urine Glucose (UA) 50 mg/dL (Negative) 01/09/18 21:48 Urine Ketones Neg mg/dL (Negative) 01/09/18 21:48 Urine Blood Lg (Negative) 01/09/18 21:48 Urine Nitrite Neg (Negative) 01/09/18 21:48 Urine Bilirubin Neg (Negative) 01/09/18 21:48 Urine Urobilinogen < 2.0 mg/dL (<2.0) 01/09/18 21:48 Ur Leukocyte Esterase Lg (Negative) 01/09/18 21:48 Urine WBC (Auto) > 182.0 /HPF (0.0-6.0) H 01/09/18 21:48 Urine RBC (Auto) 136.0 /HPF (0.0-6.0) 01/09/18 21:48 Urine Bacteria (Auto) 1+ /HPF (Negative) 01/09/18 21:48 - Imaging and Cardiology Imaging and Cardiology: Renal ultrasound shows Ellison catheter which may be inflated within prostate. Consider advancement Some debris within the urinary bladder could reflect blood products, infection or other etiologies marked bladder wall thickening Bilateral hydronephrosis Increased echogenicity within renal parenchyma bilaterally likely reflecting chronic medical renal disease
[2018-01-10] MEDS ORDERED: ROCEPHIN/NS 2 GM/100 ML 2 GM/100 ML BAG IV ONE (22:18)
[2018-01-10] MEDS: cefTRIAXone 1 GM in NACL 0.9% 20 ML IV SCH (22:30)
[2018-01-11] MEDS: HEPARIN SUB-Q SCH ×3 (05:41→21:56)
[2018-01-11 08:03] LABS: Calcium 8.3 mg/dL (8.4-10.2)
--- NOTE | 2018-01-11 08:50 | Progress Note ---
Assessment and Plan Assessment and plan: 62-year-old -[place] male was diagnosed with hypertension, BPH recently at [facility], who presented with abdominal pain and urinary retention. He was admitted with acute kidney failure, urinary retention and hematuria Acute renal failure/Acute tubular stasis Likely secondary to volume depletion and bladder outlet obstruction S/p ellison catheter in the ER. Continue IV fluids, nephrology following Acute urinary retention secondary to BPH Ellison placed incorrectly, urology consulted Hyperkalemia- now resolved Hematuria Likely due to pressure from obstruction, improving Hypokalemia replete as needed Severe dehydration Continue IV fluids Hyponatremia Likely secondary to volume depletion. Monitor Sodium levels. IV D5W was initiated Metabolic acidosis Continue bicarbonate drip. May need hemodialysis if not improving per Dr Alexander Nephrology following Deconditioning UTI Follow urine culture, continue ceftriaxone BPH with bladder outlet obstruction S/p Ellison catheter insertion Continue finasteride and Flomax. Patient will be discharged with Ellison to leg bag and will fup with urology as outpatient Urology consult appreciated DVT prophylaxis Heparin History Interval history: Review of systems Constitutional: No fevers, no malaise, no joint pains CVS: No chest pain, no orthopnea, no dyspnea on exertion, no pedal edema GI: No abdominal pain, no diarrhea, no vomiting, no constipation Respiratory: No shortness of breath, no wheezing, no coughing Hospitalist Physical - Physical exam Narrative exam: General.: Appears well, no distress, nontoxic HEENT: Moist mucous membranes, extraocular muscles intact, no lymphadenopathy Neck: supple Cardiac: S1-S2 heard Lungs: clear to auscultation bilaterally Abdomen: soft , nontender, nondistended, bowel sounds positive Extremities: no edema clubbing or cyanosis Skin: no rash or lesions Neurologic: no gross focal deficits Psych: appropriate behavior, appropriate mood, corporative, judgment intact - Constitutional Vitals: Temp Pulse Resp BP Pulse Ox 98.1 F 90 20 120/81 99 01/11/18 05:11 01/11/18 05:11 01/11/18 05:11 01/11/18 05:11 01/11/18 05:11 General appearance: Present: no acute distress, cachectic Results - Labs CBC & Chem 7: 01/10/18 04:59 01/11/18 06:27 Labs: Laboratory Last Values WBC 15.2 K/mm3 (4.5-11.0) H 01/10/18 04:59 RBC 3.44 M/mm3 (3.65-5.03) L 01/10/18 04:59 Hgb 10.7 gm/dl (11.8-15.2) L 01/10/18 04:59 Hct 31.5 % (35.5-45.6) L 01/10/18 04:59 MCV 92 fl (84-94) 01/10/18 04:59 MCH 31 pg (28-32) 01/10/18 04:59 MCHC 34 % (32-34) 01/10/18 04:59 RDW 12.8 % (13.2-15.2) L 01/10/18 04:59 Plt Count 385 K/mm3 (140-440) 01/10/18 04:59 Add Manual Diff Complete 01/10/18 04:59 Total Counted 100 01/10/18 04:59 Seg Neuts % (Manual) 88.0 % (40.0-70.0) H 01/10/18 04:59 Band Neutrophils % 0 % 01/10/18 04:59 Lymphocytes % (Manual) 4.0 % (13.4-35.0) L 01/10/18 04:59 Reactive Lymphs % (Man) 0 % 01/10/18 04:59 Monocytes % (Manual) 8.0 % (0.0-7.3) H 01/10/18 04:59 Eosinophils % (Manual) 0 % (0.0-4.3) 01/10/18 04:59 Basophils % (Manual) 0 % (0.0-1.8) 01/10/18 04:59 Metamyelocytes % 0 % 01/10/18 04:59 Myelocytes % 0 % 01/10/18 04:59 Promyelocytes % 0 % 01/10/18 04:59 Blast Cells % 0 % 01/10/18 04:59 Nucleated RBC % Not Reportable 01/10/18 04:59 Seg Neutrophils # Man 13.4 K/mm3 (1.8-7.7) H 01/10/18 04:59 Band Neutrophils # 0.0 K/mm3 01/10/18 04:59 Lymphocytes # (Manual) 0.6 K/mm3 (1.2-5.4) L 01/10/18 04:59 Abs React Lymphs (Man) 0.0 K/mm3 01/10/18 04:59 Monocytes # (Manual) 1.2 K/mm3 (0.0-0.8) H 01/10/18 04:59 Eosinophils # (Manual) 0.0 K/mm3 (0.0-0.4) 01/10/18 04:59 Basophils # (Manual) 0.0 K/mm3 (0.0-0.1) 01/10/18 04:59 Metamyelocytes # 0.0 K/mm3 01/10/18 04:59 Myelocytes # 0.0 K/mm3 01/10/18 04:59 Promyelocytes # 0.0 K/mm3 01/10/18 04:59 Blast Cells # 0.0 K/mm3 01/10/18 04:59 WBC Morphology Not Reportable 01/10/18 04:59 Hypersegmented Neuts Not Reportable 01/10/18 04:59 Hyposegmented Neuts Not Reportable 01/10/18 04:59 Hypogranular Neuts Not Reportable 01/10/18 04:59 Smudge Cells Not Reportable 01/10/18 04:59 Toxic Granulation Not Reportable 01/10/18 04:59 Toxic Vacuolation Not Reportable 01/10/18 04:59 Dohle Bodies Not Reportable 01/10/18 04:59 Pelger-Huet Anomaly Not Reportable 01/10/18 04:59 Cnochita Rods Not Reportable 01/10/18 04:59 Platelet Estimate Not Reportable 01/10/18 04:59 Clumped Platelets Not Reportable 01/10/18 04:59 Plt Clumps, EDTA Not Reportable 01/10/18 04:59 Large Platelets Not Reportable 01/10/18 04:59 Giant Platelets Not Reportable 01/10/18 04:59 Platelet Satelliting Not Reportable 01/10/18 04:59 Plt Morphology Comment Not Reportable 01/10/18 04:59 RBC Morphology Normal 01/10/18 04:59 Dimorphic RBCs Not Reportable 01/10/18 04:59 Polychromasia Not Reportable 01/10/18 04:59 Hypochromasia Not Reportable 01/10/18 04:59 Poikilocytosis Not Reportable 01/10/18 04:59 Anisocytosis Not Reportable 01/10/18 04:59 Microcytosis Not Reportable 01/10/18 04:59 Macrocytosis Not Reportable 01/10/18 04:59 Spherocytes Not Reportable 01/10/18 04:59 Pappenheimer Bodies Not Reportable 01/10/18 04:59 Sickle Cells Not Reportable 01/10/18 04:59 Target Cells Not Reportable 01/10/18 04:59 Tear Drop Cells Not Reportable 01/10/18 04:59 Ovalocytes Not Reportable 01/10/18 04:59 Helmet Cells Not Reportable 01/10/18 04:59 [place] Bodies Not Reportable 01/10/18 04:59 [place] Rings Not Reportable 01/10/18 04:59 Lance Cells Not Reportable 01/10/18 04:59 Bite Cells Not Reportable 01/10/18 04:59 Crenated Cell Not Reportable 01/10/18 04:59 Elliptocytes Not Reportable 01/10/18 04:59 Acanthocytes (Spur) Not Reportable 01/10/18 04:59 Rouleaux Not Reportable 01/10/18 04:59 Hemoglobin C Crystals Not Reportable 01/10/18 04:59 Schistocytes Not Reportable 01/10/18 04:59 Malaria parasites Not Reportable 01/10/18 04:59 Alvaro Bodies Not Reportable 01/10/18 04:59 Hem Pathologist Commnt No 01/10/18 04:59 PT 15.4 Sec. (12.2-14.9) H 01/09/18 19:35 INR 1.16 (0.87-1.13) H 01/09/18 19:35 APTT 29.6 Sec. (24.2-36.6) 01/09/18 19:35 Sodium 135 mmol/L (137-145) L 01/11/18 06:27 Potassium 2.9 mmol/L (3.6-5.0) L* 01/11/18 06:27 Chloride 85.2 mmol/L (98-107) L 01/11/18 06:27 Carbon Dioxide 18 mmol/L (22-30) L 01/11/18 06:27 Anion Gap 35 mmol/L 01/11/18 06:27 BUN 171 mg/dL (9-20) H 01/11/18 06:27 Creatinine 5.3 mg/dL (0.8-1.5) H 01/11/18 06:27 Estimated GFR 13 ml/min 01/11/18 06:27 BUN/Creatinine Ratio 32 % 01/11/18 06:27 Glucose 209 mg/dL (75-100) H 01/11/18 06:27 Calcium 8.3 mg/dL (8.4-10.2) L 01/11/18 06:27 Phosphorus 7.50 mg/dL (2.5-4.5) H 01/11/18 06:27 Total Bilirubin 0.60 mg/dL (0.1-1.2) 01/09/18 19:35 AST 27 units/L (5-40) 01/09/18 19:35 ALT 26 units/L (7-56) 01/09/18 19:35 Alkaline Phosphatase 96 units/L (35-129) 01/09/18 19:35 Total Creatine Kinase 606 units/L (55-170) H 01/11/18 06:27 Troponin T 0.032 ng/mL (0.00-0.029) H 01/09/18 19:35 NT-Pro-B Natriuret Pep 483.2 pg/mL (0-900) 01/09/18 19:35 Total Protein 8.2 g/dL (6.3-8.2) 01/09/18 19:35 Albumin 4.6 g/dL (3.9-5) 01/09/18 19:35 Albumin/Globulin Ratio 1.3 % 01/09/18 19:35 Triglycerides 130 mg/dL (2-149) 01/09/18 19:35 Cholesterol 179 mg/dL (50-199) 01/09/18 19:35 LDL Cholesterol Direct 102 mg/dL (50-130) 01/09/18 19:35 HDL Cholesterol 51 mg/dL (40-59) 01/09/18 19:35 Cholesterol/HDL Ratio 3.50 % 01/09/18 19:35 Urine Color Yellow (Yellow) 01/09/18 21:48 Urine Turbidity Cloudy (Clear) 01/09/18 21:48 Urine pH 5.0 (5.0-7.0) 01/09/18 21:48 Ur Specific [place] 1.012 (1.003-1.030) 01/09/18 21:48 Urine Protein 100 mg/dl mg/dL (Negative) 01/09/18 21:48 Urine Glucose (UA) 50 mg/dL (Negative) 01/09/18 21:48 Urine Ketones Neg mg/dL (Negative) 01/09/18 21:48 Urine Blood Lg (Negative) 01/09/18 21:48 Urine Nitrite Neg (Negative) 01/09/18 21:48 Urine Bilirubin Neg (Negative) 01/09/18 21:48 Urine Urobilinogen < 2.0 mg/dL (<2.0) 01/09/18 21:48 Ur Leukocyte Esterase Lg (Negative) 01/09/18 21:48 Urine WBC (Auto) > 182.0 /HPF (0.0-6.0) H 01/09/18 21:48 Urine RBC (Auto) 136.0 /HPF (0.0-6.0) 01/09/18 21:48 Urine Bacteria (Auto) 1+ /HPF (Negative) 01/09/18 21:48 Urine Creatinine 58.0 mg/dL (0.1-20.0) H 01/10/18 Unknown Urine Sodium 24 mmol/L 01/10/18 Unknown
[2018-01-11] MEDS: SODIUM CHLORIDE FLUSH SYRINGE 10 ML IV SCH ×2 (10:04→21:59)
[2018-01-11] MEDS: PROSCAR PO SCH (10:05)
[2018-01-11] MEDS: FLOMAX PO SCH (10:05)
[2018-01-11] MEDS: PEPCID PO SCH ×2 (10:06→21:56)
[2018-01-11] MEDS ORDERED: KCL 50 MEQ in NACL 0.45% 500 ML IV SCH (11:00)
--- NOTE | 2018-01-11 13:00 | Progress Note ---
Assessment and Plan SANDOVAL - IVF & f/u BUN/Cr Bilateral [place] / BPH - Seen by , continue ellison & plan for outpt f/u on d/c Lytes - Replenish K, f/u Mg & f/u Phos. Continue Bicarb drip & f/u HypoNa & Acidosis Disposition - Suggest to hold discharge until BUN/Cr improve further, will f/u with you Subjective Date of service: 01/11/18 Objective - Vital Signs Vital signs: Vital Signs - 12hr 01/11/18 01/11/18 01/11/18 01:00 01:30 01:39 Temperature 98.2 F 98.2 F Pulse Rate 97 H 93 H Respiratory 17 Rate Blood Pressure 112/65 Blood Pressure 112/65 [Right] O2 Sat by Pulse 96 Oximetry 01/11/18 01/11/18 01/11/18 05:11 07:43 09:00 Temperature 98.1 F Pulse Rate 90 108 H 96 H Respiratory 20 Rate Blood Pressure 120/81 101/62 Blood Pressure [Right] O2 Sat by Pulse 99 97 Oximetry - General Appearance General appearance: other (Awake & alert) Neck: no JVD Respiratory: Present: Other (Good air entry) Cardiology: regular, S1S2 Gastrointestinal: other (Soft) Neurologic: no focal deficit - Lab 01/10/18 04:59 01/11/18 06:27 Most recent lab results Calcium 8.3 mg/dL (8.4-10.2) L 01/11/18 06:27 Phosphorus 7.50 mg/dL (2.5-4.5) H 01/11/18 06:27 Urine Creatinine 58.0 mg/dL (0.1-20.0) H 01/10/18 Unknown Urine Sodium 24 mmol/L 01/10/18 Unknown
[2018-01-11] MEDS: cefTRIAXone 1 GM in NACL 0.9% 20 ML IV SCH (21:56)
[2018-01-11] MEDS: SODIUM BICARBONATE 100 MEQ in STERILE WATER 1,000 ML IV SCH (21:56)
[2018-01-12] MEDS: HEPARIN SUB-Q SCH ×3 (06:37→22:51)
[2018-01-12 08:23] LABS: Calcium 8.8 mg/dL (8.4-10.2)
[2018-01-12] MEDS ORDERED: K-DUR PO SCH (10:00)
[2018-01-12] MEDS ORDERED: NACL 0.9% 1000 ML 1,000 ML with KCL 80 MEQ IV ONE (10:36)
[2018-01-12] MEDS: PEPCID PO SCH ×2 (10:37→22:51)
[2018-01-12] MEDS: FLOMAX PO SCH (10:37)
[2018-01-12] MEDS: PROSCAR PO SCH (10:37)
[2018-01-12] MEDS: SODIUM CHLORIDE FLUSH SYRINGE 10 ML IV SCH ×2 (10:44→22:58)
--- NOTE | 2018-01-12 12:31 | Progress Note ---
Assessment and Plan SANDOVAL - IVF & f/u resolving BUN/Cr Bilateral [place] / BPH - Seen by , continue ellison & plan for outpt f/u on d/c Lytes - Replenish K, change bicarb drip to NS Subjective Date of service: 01/12/18 Objective - Vital Signs Vital signs: Vital Signs - 12hr 01/12/18 01/12/18 01/12/18 00:13 03:16 04:22 Temperature 98.2 F 98.5 F Pulse Rate 100 H 96 H 97 H Respiratory 20 20 Rate Blood Pressure 106/70 104/72 O2 Sat by Pulse 97 96 Oximetry 01/12/18 08:44 Temperature 98.7 F Pulse Rate 109 H Respiratory 16 Rate Blood Pressure 105/70 O2 Sat by Pulse 97 Oximetry - General Appearance General appearance: other (Asleep & arousable) Neck: no JVD Respiratory: Present: Clear to Ascultation Cardiology: regular, S1S2 Gastrointestinal: normal - Lab 01/10/18 04:59 01/12/18 06:41 Most recent lab results Calcium 8.8 mg/dL (8.4-10.2) 01/12/18 06:41 Phosphorus 3.60 mg/dL (2.5-4.5) D 01/12/18 06:41 Magnesium 2.30 mg/dL (1.7-2.3) 01/12/18 06:41 Urine Creatinine 58.0 mg/dL (0.1-20.0) H 01/10/18 Unknown Urine Sodium 24 mmol/L 01/10/18 Unknown
[2018-01-12] MEDS ORDERED: NACL 0.9% 1000 ML 1,000 ML IV SCH (13:00)
[2018-01-12] MEDS: KCL 40 MEQ in NACL 0.9% 500 ML 500 ML IV SCH ×2 (14:45→22:52)
--- NOTE | 2018-01-12 15:51 | Progress Note ---
Assessment and Plan Assessment and plan: 62-year-old -Spanish male was diagnosed with hypertension, BPH recently at [facility], who presented with abdominal pain and urinary retention. He was admitted with acute kidney failure, urinary retention and hematuria Acute renal failure/Acute tubular stasis Likely secondary to volume depletion and bladder outlet obstruction S/p ellison catheter in the ER. Continue IV fluids, nephrology following Acute urinary retention secondary to BPH Ellison placed incorrectly, urology consulted Hyperkalemia- now resolved Hematuria Likely due to pressure from obstruction, improving Hypokalemia replete as needed Severe dehydration Continue IV fluids Hyponatremia Likely secondary to volume depletion. Monitor Sodium levels. IV D5W was initiated Metabolic acidosis Continue bicarbonate drip. May need hemodialysis if not improving per Dr Alexander Nephrology following Deconditioning UTI Follow urine culture, continue ceftriaxone BPH with bladder outlet obstruction S/p Ellison catheter insertion Continue finasteride and Flomax. Patient will be discharged with Ellison to leg bag and will fup with urology as outpatient Urology consult appreciated DVT prophylaxis Heparin History Interval history: Review of systems Constitutional: No fevers, no malaise, no joint pains CVS: No chest pain, no orthopnea, no dyspnea on exertion, no pedal edema GI: No abdominal pain, no diarrhea, no vomiting, no constipation Respiratory: No shortness of breath, no wheezing, no coughing Hospitalist Physical - Physical exam Narrative exam: General.: Appears well, no distress, nontoxic HEENT: Moist mucous membranes, extraocular muscles intact, no lymphadenopathy Neck: supple Cardiac: S1-S2 heard Lungs: clear to auscultation bilaterally Abdomen: soft , nontender, nondistended, bowel sounds positive Extremities: no edema clubbing or cyanosis Skin: no rash or lesions Neurologic: no gross focal deficits Psych: appropriate behavior, appropriate mood, corporative, judgment intact - Constitutional Vitals: Temp Pulse Resp BP Pulse Ox 98.7 F 109 H 16 105/70 97 01/12/18 08:44 01/12/18 08:44 01/12/18 08:44 01/12/18 08:44 01/12/18 08:44 General appearance: Present: no acute distress, cachectic Results - Labs CBC & Chem 7: 01/10/18 04:59 01/12/18 06:41 Labs: Laboratory Last Values WBC 15.2 K/mm3 (4.5-11.0) H 01/10/18 04:59 RBC 3.44 M/mm3 (3.65-5.03) L 01/10/18 04:59 Hgb 10.7 gm/dl (11.8-15.2) L 01/10/18 04:59 Hct 31.5 % (35.5-45.6) L 01/10/18 04:59 MCV 92 fl (84-94) 01/10/18 04:59 MCH 31 pg (28-32) 01/10/18 04:59 MCHC 34 % (32-34) 01/10/18 04:59 RDW 12.8 % (13.2-15.2) L 01/10/18 04:59 Plt Count 385 K/mm3 (140-440) 01/10/18 04:59 Add Manual Diff Complete 01/10/18 04:59 Total Counted 100 01/10/18 04:59 Seg Neuts % (Manual) 88.0 % (40.0-70.0) H 01/10/18 04:59 Band Neutrophils % 0 % 01/10/18 04:59 Lymphocytes % (Manual) 4.0 % (13.4-35.0) L 01/10/18 04:59 Reactive Lymphs % (Man) 0 % 01/10/18 04:59 Monocytes % (Manual) 8.0 % (0.0-7.3) H 01/10/18 04:59 Eosinophils % (Manual) 0 % (0.0-4.3) 01/10/18 04:59 Basophils % (Manual) 0 % (0.0-1.8) 01/10/18 04:59 Metamyelocytes % 0 % 01/10/18 04:59 Myelocytes % 0 % 01/10/18 04:59 Promyelocytes % 0 % 01/10/18 04:59 Blast Cells % 0 % 01/10/18 04:59 Nucleated RBC % Not Reportable 01/10/18 04:59 Seg Neutrophils # Man 13.4 K/mm3 (1.8-7.7) H 01/10/18 04:59 Band Neutrophils # 0.0 K/mm3 01/10/18 04:59 Lymphocytes # (Manual) 0.6 K/mm3 (1.2-5.4) L 01/10/18 04:59 Abs React Lymphs (Man) 0.0 K/mm3 01/10/18 04:59 Monocytes # (Manual) 1.2 K/mm3 (0.0-0.8) H 01/10/18 04:59 Eosinophils # (Manual) 0.0 K/mm3 (0.0-0.4) 01/10/18 04:59 Basophils # (Manual) 0.0 K/mm3 (0.0-0.1) 01/10/18 04:59 Metamyelocytes # 0.0 K/mm3 01/10/18 04:59 Myelocytes # 0.0 K/mm3 01/10/18 04:59 Promyelocytes # 0.0 K/mm3 01/10/18 04:59 Blast Cells # 0.0 K/mm3 01/10/18 04:59 WBC Morphology Not Reportable 01/10/18 04:59 Hypersegmented Neuts Not Reportable 01/10/18 04:59 Hyposegmented Neuts Not Reportable 01/10/18 04:59 Hypogranular Neuts Not Reportable 01/10/18 04:59 Smudge Cells Not Reportable 01/10/18 04:59 Toxic Granulation Not Reportable 01/10/18 04:59 Toxic Vacuolation Not Reportable 01/10/18 04:59 Dohle Bodies Not Reportable 01/10/18 04:59 Pelger-Huet Anomaly Not Reportable 01/10/18 04:59 Conchita Rods Not Reportable 01/10/18 04:59 Platelet Estimate Not Reportable 01/10/18 04:59 Clumped Platelets Not Reportable 01/10/18 04:59 Plt Clumps, EDTA Not Reportable 01/10/18 04:59 Large Platelets Not Reportable 01/10/18 04:59 Giant Platelets Not Reportable 01/10/18 04:59 Platelet Satelliting Not Reportable 01/10/18 04:59 Plt Morphology Comment Not Reportable 01/10/18 04:59 RBC Morphology Normal 01/10/18 04:59 Dimorphic RBCs Not Reportable 01/10/18 04:59 Polychromasia Not Reportable 01/10/18 04:59 Hypochromasia Not Reportable 01/10/18 04:59 Poikilocytosis Not Reportable 01/10/18 04:59 Anisocytosis Not Reportable 01/10/18 04:59 Microcytosis Not Reportable 01/10/18 04:59 Macrocytosis Not Reportable 01/10/18 04:59 Spherocytes Not Reportable 01/10/18 04:59 Pappenheimer Bodies Not Reportable 01/10/18 04:59 Sickle Cells Not Reportable 01/10/18 04:59 Target Cells Not Reportable 01/10/18 04:59 Tear Drop Cells Not Reportable 01/10/18 04:59 Ovalocytes Not Reportable 01/10/18 04:59 Helmet Cells Not Reportable 01/10/18 04:59 Watson-George Bodies Not Reportable 01/10/18 04:59 [place] Rings Not Reportable 01/10/18 04:59 Adamant Cells Not Reportable 01/10/18 04:59 Bite Cells Not Reportable 01/10/18 04:59 Crenated Cell Not Reportable 01/10/18 04:59 Elliptocytes Not Reportable 01/10/18 04:59 Acanthocytes (Spur) Not Reportable 01/10/18 04:59 Rouleaux Not Reportable 01/10/18 04:59 Hemoglobin C Crystals Not Reportable 01/10/18 04:59 Schistocytes Not Reportable 01/10/18 04:59 Malaria parasites Not Reportable 01/10/18 04:59 Alvaro Bodies Not Reportable 01/10/18 04:59 Hem Pathologist Commnt No 01/10/18 04:59 PT 15.4 Sec. (12.2-14.9) H 01/09/18 19:35 INR 1.16 (0.87-1.13) H 01/09/18 19:35 APTT 29.6 Sec. (24.2-36.6) 01/09/18 19:35 Sodium 139 mmol/L (137-145) 01/12/18 06:41 Potassium 2.8 mmol/L (3.6-5.0) L* 01/12/18 06:41 Chloride 91.4 mmol/L (98-107) L 01/12/18 06:41 Carbon Dioxide 28 mmol/L (22-30) D 01/12/18 06:41 Anion Gap 22 mmol/L 01/12/18 06:41 BUN 108 mg/dL (9-20) H 01/12/18 06:41 Creatinine 3.0 mg/dL (0.8-1.5) H 01/12/18 06:41 Estimated GFR 26 ml/min 01/12/18 06:41 BUN/Creatinine Ratio 36 % 01/12/18 06:41 Glucose 121 mg/dL (75-100) H 01/12/18 06:41 POC Glucose 146 (70-105) H 01/12/18 06:53 Calcium 8.8 mg/dL (8.4-10.2) 01/12/18 06:41 Phosphorus 3.60 mg/dL (2.5-4.5) D 01/12/18 06:41 Magnesium 2.30 mg/dL (1.7-2.3) 01/12/18 06:41 Total Bilirubin 0.60 mg/dL (0.1-1.2) 01/09/18 19:35 AST 27 units/L (5-40) 01/09/18 19:35 ALT 26 units/L (7-56) 01/09/18 19:35 Alkaline Phosphatase 96 units/L (35-129) 01/09/18 19:35 Total Creatine Kinase 606 units/L (55-170) H 01/11/18 06:27 Troponin T 0.032 ng/mL (0.00-0.029) H 01/09/18 19:35 NT-Pro-B Natriuret Pep 483.2 pg/mL (0-900) 01/09/18 19:35 Total Protein 8.2 g/dL (6.3-8.2) 01/09/18 19:35 Albumin 4.6 g/dL (3.9-5) 01/09/18 19:35 Albumin/Globulin Ratio 1.3 % 01/09/18 19:35 Triglycerides 130 mg/dL (2-149) 01/09/18 19:35 Cholesterol 179 mg/dL (50-199) 01/09/18 19:35 LDL Cholesterol Direct 102 mg/dL (50-130) 01/09/18 19:35 HDL Cholesterol 51 mg/dL (40-59) 01/09/18 19:35 Cholesterol/HDL Ratio 3.50 % 01/09/18 19:35 Urine Color Yellow (Yellow) 01/09/18 21:48 Urine Turbidity Cloudy (Clear) 01/09/18 21:48 Urine pH 5.0 (5.0-7.0) 01/09/18 21:48 Ur Specific [place] 1.012 (1.003-1.030) 01/09/18 21:48 Urine Protein 100 mg/dl mg/dL (Negative) 01/09/18 21:48 Urine Glucose (UA) 50 mg/dL (Negative) 01/09/18 21:48 Urine Ketones Neg mg/dL (Negative) 01/09/18 21:48 Urine Blood Lg (Negative) 01/09/18 21:48 Urine Nitrite Neg (Negative) 01/09/18 21:48 Urine Bilirubin Neg (Negative) 01/09/18 21:48 Urine Urobilinogen < 2.0 mg/dL (<2.0) 01/09/18 21:48 Ur Leukocyte Esterase Lg (Negative) 01/09/18 21:48 Urine WBC (Auto) > 182.0 /HPF (0.0-6.0) H 01/09/18 21:48 Urine RBC (Auto) 136.0 /HPF (0.0-6.0) 01/09/18 21:48 Urine Bacteria (Auto) 1+ /HPF (Negative) 01/09/18 21:48 Urine Creatinine 58.0 mg/dL (0.1-20.0) H 01/10/18 Unknown Urine Sodium 24 mmol/L 01/10/18 Unknown
[2018-01-12] MEDS: cefTRIAXone 1 GM in NACL 0.9% 20 ML IV SCH (22:51)
[2018-01-12] MEDS: K-DUR PO SCH (22:51)
[2018-01-13] MEDS: HEPARIN SUB-Q SCH (06:02)
[2018-01-13 06:55] LABS: Calcium 8.6 mg/dL (8.4-10.2)
--- NOTE | 2018-01-13 09:14 | Progress Note ---
Assessment and Plan 1. Acute kidney injury: SANDOVAL in the setting of obstructive Uropathy and volume depletion. S/p ellison catheter. Continue IV fluids. Renal function continue to improve. 2. Hyperkalemia: Improved. 3. Metabolic acidosis: Improved. 4. Hyponatremia: Improved. Likely secondary to volume depletion. 5. Volume depletion: Continue IV fluids. 6. BPH with bladder outlet obstruction: S/p Ellison catheter. Subjective Date of service: 01/13/18 Interval history: Patient is doing much better. Objective - Vital Signs Vital signs: Vital Signs - 12hr 01/12/18 01/13/18 01/13/18 23:55 04:14 05:36 Temperature 98.7 F 98.2 F Pulse Rate 94 H 107 H 97 H Respiratory 18 18 Rate Blood Pressure 109/77 120/86 O2 Sat by Pulse 98 100 Oximetry 01/13/18 08:03 Temperature 98.5 F Pulse Rate 98 H Respiratory 18 Rate Blood Pressure 122/83 O2 Sat by Pulse 99 Oximetry - General Appearance General appearance: well-developed, appears stated age, other (no distress) EENT: ATNC, PERRL, hearing intact, vision intact Neck: supple Respiratory: Present: Clear to Ascultation Cardiology: regular, S1S2, no murmurs Gastrointestinal: normoactive bowel sounds, no tenderness, no distended Integumentary: no rash, warm and dry Neurologic: no focal deficit, no asterixis, alert and oriented x3 Musculoskeletal: other (no edema) Psychiatric: mood/affect appropriate, cooperative - Lab 01/10/18 04:59 01/13/18 05:52 Most recent lab results Calcium 8.6 mg/dL (8.4-10.2) 01/13/18 05:52 Phosphorus 3.60 mg/dL (2.5-4.5) D 01/12/18 06:41 Magnesium 2.30 mg/dL (1.7-2.3) 01/12/18 06:41 Urine Creatinine 58.0 mg/dL (0.1-20.0) H 01/10/18 Unknown Urine Sodium 24 mmol/L 01/10/18 Unknown
[2018-01-13] MEDS: FLOMAX PO SCH (09:45)
[2018-01-13] MEDS: SODIUM CHLORIDE FLUSH SYRINGE 10 ML IV SCH (09:46)
[2018-01-13] MEDS: PEPCID PO SCH (09:46)
[2018-01-13] MEDS: PROSCAR PO SCH (09:46)
[2018-01-13] MEDS: K-DUR PO SCH (09:46)
--- NOTE | 2018-01-13 13:11 | Discharge Summary ---
Providers - Providers Date of Admission: 01/09/18 21:41 Attending physician: JOHNNA TORRES MD 01/09/18 21:25 Consult to Physician [CONS] Stat Consulting Provider: BRIDGETT ROWLEY Reason For Exam: high k Place consult to:: [facility] Notified:: y 01/10/18 10:03 Consult to Physician [CONS] Routine Consulting Provider: ARVIND AU Reason For Exam: ellison placemen/ BPH Place consult to:: Dr Au Notified:: yes Comment:: called by AMINA MOLINA Primary care physician: VIKAS RAMOS Hospitalization Condition: Stable Disposition: DC-01 TO HOME OR SELFCARE Exam - Constitutional Vitals: Temp Pulse Resp BP Pulse Ox 98.5 F 98 H 18 122/83 99 01/13/18 08:03 01/13/18 08:03 01/13/18 08:03 01/13/18 08:03 01/13/18 08:03 Plan Durable Medical Equipment Needed Upon Discharge: other (ellison leg bag) Follow up with: VIKAS RAMOS MD [Primary Care Provider] - 3-5 Days BRIDGETT ROWLEY MD [Staff Physician] - 7 Days Prescriptions: Finasteride [Proscar] 5 mg PO QDAY #30 tablet Potassium Chloride [K-Dur] 20 meq PO BID #60 tab Tamsulosin [Flomax] 0.4 mg PO QDAY #30 capsule
[2018-01-13 14:00] VITALS: BP 119/86
== END 2018-01-13 18:39 | disposition home or self-care (01) | DRG 683 ==
LOC: ED 18:58 → 4A 21:41
PROVIDERS: ADMIT Internal Medicine; ATTEND Internal Medicine
DX: N17.9 Acute kidney failure, unspecified (principal); N39.0 Urinary tract infection, site not specified; E87.1 Hypo-osmolality and hyponatremia; E87.2 Acidosis; N32.0 Bladder-neck obstruction; N13.30 Unspecified hydronephrosis; E86.0 Dehydration; E87.5 Hyperkalemia; I10 Essential (primary) hypertension; N40.1 Benign prostatic hyperplasia with lower urinary tract symptoms; R33.9 Retention of urine, unspecified
CPT/HCPCS: 36415; 70450; 76770; 76857; 80048; 80053; 80061; 81001; 82550; 82570; 82962; 83735; 83880; 84100; 84132; 84300; 84484; 85007; 85025; 85610; 85730; 87086; 93005; 93010; 94640; 96365; 96375; J0696; J1644; J1815; J2060; J3480; J7030; J7040; J7070

== ENCOUNTER 2018-02-04 10:31 | Emergency (ER) | payer SELFPAY | END 2018-02-04 11:00 | disposition left against medical advice (07) | LOC: ED 10:31 | DX: Z53.21 Procedure and treatment not carried out due to patient leaving prior to being seen by health care provider (principal) ==

== ENCOUNTER 2018-08-18 06:05 | Observation (INO) | payer OTHER ==
[2018-08-12 13:04] LABS: Basophils # (Auto) 0.1 K/mm3 (0.0-0.1); Basophils % (Auto) 0.9 % (0.0-1.8); Eosinophils # (Auto) 0.1 K/mm3 (0.0-0.4); Eosinophils % (Auto) 1.3 % (0.0-4.3); Hematocrit 41.1 % (35.5-45.6); Hemoglobin 13.6 gm/dl (11.8-15.2); Lymphocytes # (Auto) 1.9 K/mm3 (1.2-5.4); Lymphocytes % (Auto) 20.3 % (13.4-35.0); Mean Corpuscular HGB Conc 33 % (32-34); Mean Corpuscular Hemoglobin 32 pg (28-32); Mean Corpuscular Volume 98 fl (84-94); Monocytes # (Auto) 0.8 K/mm3 (0.0-0.8); Monocytes % (Auto) 8.3 % (0.0-7.3); Platelet Count 226 K/mm3 (140-440)
[2018-08-12 13:13] LABS: INR 1.01 (0.87-1.13)
[2018-08-12 13:16] LABS: Partial Thromboplastin Time 28.4 Sec. (24.2-36.6)
[2018-08-12 13:18] LABS: Alanine Aminotransferase 17 units/L (7-56); Albumin 4.4 g/dL (3.9-5); BUN/Creatinine Ratio 11; Blood Urea Nitrogen 13 mg/dL (9-20); Calcium 9.1 mg/dL (8.4-10.2); Hemolysis Index 18
--- NOTE | 2018-08-12 13:48 | Anesthesia Consultation ---
Anesthesia Consult and Med Hx Date of service: 08/12/18 - Airway Anesthetic Teeth Evaluation: Poor, Chipped, Edentulous ROM Head & Neck: Adequate Mental/Hyoid Distance: Adequate Mallampati Class: Class II Intubation Access Assessment: Probably Good - Pulmonary Exam CTA: Yes - Cardiac Exam Cardiac Exam: RRR - Pre-Operative Health Status ASA Pre-Surgery Classification: ASA2 Proposed Anesthetic Plan: General (hx of left leg DVT, no CAD, off xarelto, hx of illicit drug use) - Pulmonary Hx Smoking: No Hx Asthma: No COPD: No Hx Pneumonia: No Hx Sleep Apnea: No (KAMRAN PRE SCREEN HIGH RISK.) - Cardiovascular System Hx Hypertension: Yes (NO LONGER ON MEDS) - Endocrine Hx End Stage Renal Disease: No - Hematic Hx Anemia: Yes - Other Systems Hx Substance Use: Yes (MARIJUANA 2-3 X PER WEEK) Hx Cancer: No
[~2018-08-18 06:05] MED LIST: ANCEF/STERILE WATER 2 GM/20 ML IV NR
[2018-08-18] MEDS ORDERED: NACL BACTERIOSTATIC INFILTRATI ONE (06:31)
[2018-08-18] MEDS ORDERED: VERSED ONE (07:26)
[2018-08-18] MEDS ORDERED: SUBLIMAZE ONE ×2 (07:30→08:31)
[2018-08-18] MEDS ORDERED: VERSED IV NR (07:30)
[2018-08-18] MEDS ORDERED: NACL 0.9% 1000 ML 1,000 ML IV SCH ×2 (07:30→10:00)
[2018-08-18] MEDS ORDERED: XYLOCAINE MPF 2% ONE (07:30)
[2018-08-18] MEDS ORDERED: DIPRIVAN 10 MG/ML IV ONE (07:30)
[2018-08-18] MEDS ORDERED: ROBINUL ONE ×2 (07:33→08:41)
[2018-08-18] MEDS ORDERED: ZOFRAN IV PRN ×2 (07:59→09:06)
[2018-08-18] MEDS ORDERED: DILAUDID IV PRN (07:59)
--- NOTE | 2018-08-18 08:00 | Anesthesia Day of Surgery ---
Anesthesia Day of Surgery - Day of Surgery Patient Examined: Yes Patient H&P Reviewed: Yes Patient is NPO: Yes
[2018-08-18] MEDS ORDERED: SORBITOL-MANNITOL IRRIG IR ONE (08:32)
[2018-08-18] MEDS ORDERED: NACL 0.9% IR ONE ×4 (08:32→09:08)
[2018-08-18] MEDS ORDERED: MORPHINE IV PRN (09:06)
[2018-08-18] MEDS ORDERED: NARCAN 0.4 MG/1 ML IV PRN (09:06)
[2018-08-18] MEDS ORDERED: NORCO 5/325 PO PRN (09:06)
[2018-08-18] MEDS ORDERED: AMBIEN PO PRN (09:06)
--- NOTE | 2018-08-18 09:06 | Short Stay Summary ---
Short Stay Documentation Date of service: 08/18/18 - History H&P: obtained from office - Allergies and Medications Current Medications: Allergies No Known Allergies Allergy (Verified 01/09/18 20:41) Home Medications Medication Instructions Recorded Confirmed Last Taken Type Finasteride [Proscar] 5 mg PO QDAY #30 tablet 01/13/18 08/07/18 Unknown Rx Tamsulosin [Flomax] 0.4 mg PO QDAY #30 capsule 01/13/18 08/07/18 Unknown Rx Rivaroxaban [Xarelto] 20 mg PO QDAY 08/07/18 08/07/18 Unknown History Active Medications Cefazolin Sodium (Ancef/Sterile Water 2 Gm/20 Ml) 2 gm IV PREOP NR Stop: 08/18/18 23:59 Hydromorphone HCl (Dilaudid) 0.5 mg IV Q10MIN PRN PRN Reason: Pain , Severe (7-10) Stop: 08/18/18 20:00 Sodium Chloride (Nacl 0.9% 1000 Ml) 1,000 mls @ 75 mls/hr IV DIRECT TIANA Last Admin: 08/18/18 07:27 Dose: 75 mls/hr Midazolam HCl (Versed) 2 mg IV ONCE NR Stop: 08/18/18 16:00 Last Admin: 08/18/18 07:40 Dose: 2 mg Ondansetron HCl (Zofran) 4 mg IV ONCE PRN PRN Reason: Nausea And Vomiting Stop: 08/18/18 20:00 - Brief post op/procedure progress note Date of procedure: 08/18/18 Pre-op diagnosis: BPH, RETENTION Post-op diagnosis: same Procedure: cysto, TURP, cystogram Anesthesia: GETA Surgeon: ARVIND RETANA Estimated blood loss: minimal Pathology: list (prostate chips) Specimen disposition: to lab Condition: stable - Hospital course Hospital course: macrobid & norco on chart called by nurse this am---problem irrigating - cleared ok to dc home with ellison - Disposition Condition at discharge: Stable Short Stay Discharge Plan Follow up with: PRIMARY CARE, [Primary Care Provider] - 7 Days
[2018-08-18] MEDS: APRESOLINE IV PRN ×2 (09:28→09:55)
[2018-08-18] MEDS: NACL 0.9% IR SCH ×6 (10:30→16:57)
--- NOTE | 2018-08-18 11:33 | Operative Report ---
PREOPERATIVE DIAGNOSES: BPH, urinary retention. POSTOPERATIVE DIAGNOSES: BPH, urinary retention. PROCEDURE: Cystoscopy, transurethral resection of the prostate, cystogram. SURGEON: Ru Au MD ANESTHESIA: General. ESTIMATED BLOOD LOSS: Minimal. FLUIDS: Crystalloid. COMPLICATIONS: No complications. INDICATIONS: This patient is a 62-year-old gentleman, who was seen in several months ago in the hospital. The patient developed DVT and urinary retention and presented to the hospital several months ago. He was treated with Xarelto for his DVT. He sees [facility] as an outpatient. He was cleared for surgery. He has failed medical management with Flomax and Proscar. Risks, benefits, and complications were explained. The patient agreed to proceed. DESCRIPTION OF PROCEDURE: The patient was taken to the operative suite, placed in a supine position. After adequate general anesthesia placed in a dorsal lithotomy position, prepped and draped in a sterile fashion. Pancystourethroscopy was performed with 22-[place] Storz cystoscope, no urethral abnormalities. His prostate displayed trilobar prostatic obstruction. His bladder no tumors or stones were noted. He had a small right diverticulum. No tumor or stone noted in the diverticulum. Due to the diffuse mild trabeculation could not see the ureteral orifices. Using a 27-[place] resectoscope and loop with the cutting and coag on 160 and 60 transurethral resection of the prostate was performed in a systematic fashion, taking down the median lobe, right and left lateral lobes respectively. Chips were evacuated out with the GOintegro evacuator. Adequate hemostasis achieved. Cystogram confirmed no reflux extravasation small diverticulum on the right side. He has a 22-[place] 3-way catheter with 40 mL and the balloon irrigates well. We will put on mild tension. Rectal exam was benign. He was extubated, taken to recovery room. He will go home. He will be observed overnight. He will go home on [facility] [place]. JOB# [id number] [facility]
[2018-08-18 12:13] LABS: Hematocrit 37.9 % (35.5-45.6); Hemoglobin 12.7 gm/dl (11.8-15.2); Mean Corpuscular HGB Conc 33 % (32-34); Mean Corpuscular Hemoglobin 32 pg (28-32); Mean Corpuscular Volume 97 fl (84-94); Platelet Count 218 K/mm3 (140-440); Red Blood Count 3.92 M/mm3 (3.65-5.03)
--- NOTE | 2018-08-18 12:20 | Consultation ---
History of Present Illness - Reason for Consult Consult date: 08/18/18 management of DVT Requesting physician: ARVIND AU - History of Present Illness Patient is 62-year-old presents with BPH and urinary retention. He presented to Dr. Au had cystoscopy and transurethral resection of the prostate and cystogram done today, 08/18/18. The hospitalist service has been consulted for management of medical co-morbidities including DVT right lower extremity. Currently he only complains is of mild pain at surgical site. No chest pain or shortness of breath.. He has been on Xareltor for DVT and this is on hold for surgery. Past History Past Medical History: DVT (right lower ext) Past Surgical History: TURP, Other (Cystoscopy,) Social history: , lives with family, smoking, full code, other (Alcohol occasionally, marijuana frequently, no cigarette smoking) Medications and Allergies Allergies Allergy/AdvReac Type Severity Reaction Status Date / Time No Known Allergies Allergy Verified 01/09/18 20:41 Home Medications Medication Instructions Recorded Confirmed Last Taken Type Finasteride [Proscar] 5 mg PO QDAY #30 tablet 01/13/18 08/07/18 Unknown Rx Tamsulosin [Flomax] 0.4 mg PO QDAY #30 capsule 01/13/18 08/07/18 Unknown Rx Rivaroxaban [Xarelto] 20 mg PO QDAY 08/07/18 08/07/18 Unknown History Active Meds: Active Medications Acetaminophen/Hydrocodone Bitart ([place] 5/325) 2 each PO Q4H PRN PRN Reason: Pain, Moderate (4-6) Cefazolin Sodium (Ancef/Sterile Water 2 Gm/20 Ml) 2 gm IV PREOP NR Stop: 08/18/18 23:59 Hydromorphone HCl (Dilaudid) 0.5 mg IV Q10MIN PRN PRN Reason: Pain , Severe (7-10) Stop: 08/18/18 20:00 Last Admin: 08/18/18 09:27 Dose: 0.5 mg Sodium Chloride (Nacl 0.9% 1000 Ml) 1,000 mls @ 75 mls/hr IV DIRECT TIANA Last Admin: 08/18/18 07:27 Dose: 75 mls/hr Cefazolin Sodium (Ancef/Ns 1 Gm/50 Ml) 1 gm in 50 mls @ 100 mls/hr IV Q8H TIANA; Protocol Stop: 08/19/18 00:29 Sodium Chloride (Nacl 0.9% 1000 Ml) 1,000 mls @ 100 mls/hr IV DIRECT TIANA Midazolam HCl (Versed) 2 mg IV ONCE NR Stop: 08/18/18 16:00 Last Admin: 08/18/18 07:40 Dose: 2 mg Morphine Sulfate (Morphine) 2 mg IV Q4H PRN PRN Reason: Pain, Moderate (4-6) Naloxone HCl (Narcan 0.4 Mg/1 Ml) 0.1 mg IV Q2MIN PRN PRN Reason: Res Rate </= 8 or 02 SAT < 92% Ondansetron HCl (Zofran) 4 mg IV ONCE PRN PRN Reason: Nausea And Vomiting Stop: 08/18/18 20:00 Ondansetron HCl (Zofran) 4 mg IV Q8H PRN PRN Reason: Nausea And Vomiting Sodium Chloride (Nacl 0.9%) 2,000 ml IR DIRECT TIANA Zolpidem Tartrate (Ambien) 5 mg PO QHS PRN PRN Reason: Sleep Review of Systems All systems: negative (No fever, no chest pain, no SOB. All other systems reviewed and are negative) Exam - Physical Exam Narrative exam: GEN: Not in acute distress, lying in bed, HEENT: Normocephalic, atraumatic, Neck: supple, No JVD, Lungs: Clear to auscultation bilaterally, no crackles, no wheeze Heart:S1 and S2 regular, no murmurs, rubs or gallop, Abd:soft, non-tender, non-distended, normal bowel sounds Ext: No edema, no clubbing, no cyanosis, Neuro: Awake, alert, oriented x 3, no focal signs : Perrin catheter, bloody urine in bag - Constitutional Vitals: Temp Pulse Resp BP Pulse Ox 98.3 F 98 H 18 137/86 100 08/18/18 10:53 08/18/18 10:53 08/18/18 10:53 08/18/18 10:53 08/18/18 10:53 Results - Labs CBC & Chem 7: 08/18/18 11:35 08/18/18 11:35 Labs: Abnormal lab results 08/18/18 Range/Units 11:35 MCV 97 H (84-94) fl RDW 16.0 H (13.2-15.2) % Assessment and Plan BPH and urinary retention, s/p Cystioscopy, TURP and cystogram. Managed by Attending, Dr. Au History of DVT right lower ext. Hold Xarelto because of surgery Dr. Au to decide when to resume. Full code status Thanks for consulting us, Dr. au. Will follow with you.
[2018-08-18 12:25] LABS: BUN/Creatinine Ratio 14; Blood Urea Nitrogen 15 mg/dL (9-20); Calcium 8.9 mg/dL (8.4-10.2); Hemolysis Index 22
[2018-08-18] MEDS: ANCEF/NS 1 GM/50 ML 1 GM/50 ML BAG IV SCH (18:38)
[2018-08-19] MEDS: ANCEF/NS 1 GM/50 ML 1 GM/50 ML BAG IV SCH (01:25)
[2018-08-19] MEDS ORDERED: NACL 0.9% IR ONE (04:27)
[2018-08-19 05:53] LABS: Basophils # (Auto) 0.1 K/mm3 (0.0-0.1); Basophils % (Auto) 0.5 % (0.0-1.8); Eosinophils # (Auto) 0.1 K/mm3 (0.0-0.4); Eosinophils % (Auto) 0.6 % (0.0-4.3); Hematocrit 35.4 % (35.5-45.6); Hemoglobin 11.9 gm/dl (11.8-15.2); Lymphocytes # (Auto) 1.4 K/mm3 (1.2-5.4); Lymphocytes % (Auto) 12.7 % (13.4-35.0); Mean Corpuscular HGB Conc 34 % (32-34); Mean Corpuscular Hemoglobin 32 pg (28-32); Mean Corpuscular Volume 96 fl (84-94); Monocytes # (Auto) 0.8 K/mm3 (0.0-0.8); Monocytes % (Auto) 7.1 % (0.0-7.3); Platelet Count 197 K/mm3 (140-440); Red Blood Count 3.67 M/mm3 (3.65-5.03); Red Cell Distribution Width 15.8 % (13.2-15.2)
[2018-08-19 06:09] LABS: BUN/Creatinine Ratio 11; Blood Urea Nitrogen 12 mg/dL (9-20); Calcium 8.4 mg/dL (8.4-10.2); Hemolysis Index 3
[2018-08-19] MEDS ORDERED: NACL 0.9% IR NR (07:08)
[2018-08-19 10:20] VITALS: BP 146/84
--- NOTE | 2018-08-19 13:16 | Progress Note ---
Assessment and Plan /BPH and urinary retention, s/p Cystioscopy, TURP and cystogram. Managed by Attending, Dr. Au /History of DVT right lower ext. Held Xarelto because of surgery Dr. Au to decide when to resume. Full code status -Will follow with you. Subjective Date of service: 08/19/18 Objective - Constitutional Vitals: Vital Signs - 12hr 08/19/18 08/19/18 04:20 08:42 Temperature 98.6 F 98.6 F Pulse Rate 52 L 56 L Respiratory 17 18 Rate Blood Pressure 150/68 146/84 O2 Sat by Pulse 100 100 Oximetry - Labs CBC & Chem 7: 08/19/18 04:23 08/19/18 04:23 Labs: Abnormal lab results 08/19/18 08/19/18 Range/Units 04:23 04:23 WBC 11.2 H (4.5-11.0) K/mm3 Hct 35.4 L (35.5-45.6) % MCV 96 H (84-94) fl RDW 15.8 H (13.2-15.2) % Lymph % (Auto) 12.7 L (13.4-35.0) % Seg Neutrophils % 79.1 H (40.0-70.0) % Seg Neutrophils # 8.9 H (1.8-7.7) K/mm3 Glucose 104 H (75-100) mg/dL
--- NOTE | 2018-08-20 07:13 | Fluoroscopy Report ---
FLUOROSCOPY CYSTOGRAM STATIC History: BPH, urinary retention Findings: Fluoroscopy was provided by radiology during cystogram by the urologist. A 2 cm diverticulum is noted along the right lateral wall of the bladder. Otherwise, the bladder demonstrates normal characteristics. No reflux in the distal ureters or extravasation is identified. The diverticulum retains contrast on the post drainage image. Impression: Bladder diverticulum as described.
== END 2018-08-19 12:24 | disposition home or self-care (01) ==
LOC: OR 06:05 → INTOOBSV 10:24 → 3B-SURG 10:24
PROVIDERS: ADMIT Urology; ATTEND Urology
DX: N40.1 Benign prostatic hyperplasia with lower urinary tract symptoms (principal); N41.9 Inflammatory disease of prostate, unspecified; R33.8 Other retention of urine
CPT/HCPCS: 36415; 52601; 74430; 80048; 80053; 85025; 85027; 85610; 85730; 86850; 86900; 86901; 88305; 96365; 96366; 96375; A4217; G0378; J0360; J0690; J1170; J2250; J2270; J2704; J3010; J7030; Q9967